=== PATIENT | female | born 1965 | race Caucasian/White ===

== ENCOUNTER 2024-02-23 12:17 | Emergency (ER) | payer BC, SELFPAY ==
[2024-02-23 12:19] VITALS: BP 146/90
[2024-02-23 13:01] LABS: % Basophils 0.4 % (0-2); % Eosinophils 0.3 % (0-6); % Immature Granulocytes 2.2 % (0-0.5); % Lymphocytes 17.1 % (20.5-51.1); % Monocytes 8.3 % (1.7-9.3); % Neutrophils 71.7 % (42.2-75.2); Absolute Immature Granulocytes 0.2 10^3/uL (0-0.05); Absolute Lymphocytes 1.9 10^3/uL (1.2-3.4); Absolute Monocytes 0.9 10^3/uL (0.1-0.6); Hematocrit 40.3 % (37.0-47.0); Hemoglobin 13.6 g/dL (12.0-16.0); Mean Corp Hgb Conc. 33.7 g/dL (33.0-37.0); Mean Corpuscular Hgb 27.7 pg (27.0-31.0); Mean Corpuscular Volume 82.1 fL (81.0-99.0); Mean Platelet Volume 10.6 fL (7.4-10.4); Nucleated Red Blood Cells % 0 %; Platelet Count 245 10^3/uL (130-400); Red Blood Cell Count 4.91 10^6/uL (4.20-5.40); Red Cell Dist. Width 13.4 % (11.5-14.5); White Blood Cell Count 11.1 10^3/uL (4.8-10.8)
[2024-02-23 13:18] LABS: ALT (SGPT) 82 U/L (0-35); AST (SGOT) 30 U/L (14-36); Acetaminophen < 10 ug/ml (10-30); Albumin 3.6 g/dl (3.5-5.0); Alkaline Phosphatase 37 U/L (38-126); Blood Urea Nitrogen 20 mg/dl (7-17); Calcium 8.8 mg/dl (8.4-10.2); Carbon Dioxide 25 mmol/L (22-30); Chloride 99 mmol/L (98-107); Glucose 102 mg/dl (70-99); Potassium 3.4 mmol/L (3.5-5.1); Salicylate < 1.0 mg/dl (2.0-20.0); Sodium 130 mmol/L (135-145); Total Bilirubin 0.3 mg/dl (0.2-1.3); Total Protein 6.1 g/dl (6.3-8.2); eGFR > 60.00
[2024-02-23 13:19] LABS: Alcohol None Detected
[2024-02-23 13:57] LABS: Urine Albumin Negative (Neg - Trace); Urine Bilirubin Negative (Negative); Urine Character Clear (Clear); Urine Color Yellow; Urine Glucose Negative (Negative); Urine Ketone Trace (Negative); Urine Leukocyte Trace (Negative); Urine Nitrite Negative (Negative); Urine Occult Blood Negative (Negative); Urine Urobilinogen Negative (Neg - 1+)
[2024-02-23 14:17] LABS: Amphetamines Negative (Negative); Barbiturates Negative (Negative); Benzodiazepines Negative (Negative); Buprenorphine Negative (Negative); Cocaine Negative (Negative); Marijuana Negative (Negative); Methadone Negative (Negative); Methamphetamines Negative (Negative); Opiates Negative (Negative); Phencyclidine Negative (Negative); Tricyclic Antidepressants Negative (Negative)
[2024-02-23 14:35] LABS: Urine Amorphous Seen; Urine Squamous Cell 0-2 /LPF (Few); Urine Urothelial Cell 0-2 /LPF (FEW)
[2024-02-23 14:36] LABS: Urine Bacteria Few (Negative); Urine Red Blood Cell 0-2 /HPF (0-2); Urine White Cell 0-2 /HPF (0-5)
--- NOTE | 2024-02-23 15:01 | ED.GENMED ---
History of Present Illness
General
Chief Complaint: Suicidal Ideation
Time Seen by Provider: 02/23/24 13:46
Travel History
Have you had any contact with someone who has COVID-19?: No
Do you have any symptoms of coronavirus? Fever > 100 degrees, chills, cough, shortness of breath, sore throat, loss of taste or smell, muscle aches, or headache?: No
History of Present Illness
History of Present Illness:
HPI: The patient presents due to suicidal ideation. She initially was seen at [facility] who referred her here for further evaluation and medical management. 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 She does not
have a plan for suicide. She states she is still taking Zoloft but her daughter took her benzo away for her as there was concerned that the patient may have been abusing it. Family states that she was at [facility] after she had some left-sided
weakness.
EXAM:
GENERAL: Appears very anxious and somewhat tremulous
HEENT: Moist oral mucosa
CARDIOVASCULAR: No murmurs, normal heart rate, regular rhythm, No chest wall tenderness
PULMONARY: No respiratory distress, breath sounds are clear and equal
ABDOMEN: Soft with no peritoneal signs, no tenderness
NEUROLOGIC: Very good strength all extremities however she did report some left-sided weakness from weeks ago that is not clearly present on exam, no coordination deficits
PSYCHIATRIC: Appropriate mental status, normal insight and judgement, however appears very and
EXTREMITIES: Nontender, no edema, moves all extremities equally
SKIN: No rash, no lesions
TIME OF INITIAL ENCOUNTER: 1 PM
NUMBER AND COMPLEXITY OF PROBLEMS ADDRESSED AT THE ENCOUNTER
� Chronic conditions affecting care: Metastatic lung cancer
� Acute Exacerbation and/or Progression of Chronic Illness: The patient has been on steroids and is currently weaning down however
� Differential Diagnosis includes: Suicidal ideation, intracranial mass, overdose, electrolyte abnormality
AMOUNT AND/OR COMPLEXITY OF DATA TO BE REVIEWED AND ANALYZED
� I performed an independent evaluation of and my interpretation is:
EKG:
CT: CT imaging shows right parietal craniotomy changes and large right hemispheric area of abnormality decreased attenuation representing both edematous changes encephalomalacia, there is a 5 mm shift of the midline to the left
however no intracranial mass lesion noted
X-rays:
Laboratory Studies: White count 11.1, hemoglobin 13.6, bicarb is normal
Other:
� Review of other/old records: I reviewed the notes that the daughter shared with me, the prior neuroimaging at [facility] showed 13 mm of shift�this was obtained earlier this month
� Clinical information was obtained by an independent historian: I spoke to daughter at bedside
� Prescriptions/Medications Considered but not given:
� Further testing considered but not performed:
RISK OF COMPLICATIONS AND/OR MORBIDITY OR MORTALITY OF PATIENT MANAGEMENT
� Social determinants of health affecting care: Lives at home
� Discussion with other providers:
� Escalation of care including admission/observation vs risk of discharge considered: She does have suicidal ideation. She does not necessarily have a plan but is an obvious distress. Basic lab work relatively unremarkable
however sodium slightly low at 130. Urinalysis does not show any sign of infection, UDS, salicylates, Tylenol, alcohol unremarkable. Although CT does show 5 mm of shift along with chronic disease, this is actually improved compared to the
neuroimaging at [facility] which showed 13 mm of shift earlier this month. I do suspect that some of her symptoms are related to being on steroids. She appears extremely anxious, will give a dose of benzos here. The patient has no new
neurologic dysfunction but is primarily here related to suicidal ideation. She has a nonfocal neurologic examination however she appears extremely anxious.
Past History
Past History
ED Past Medical History: Other (Migraines)
ED Past Surgical History: Other (wisdom teeth, skin cancer)
Social History
Tobacco: Non-smoker
Alcohol: None
Drug: None
Phy Exam
Physical Exam
Physical Exam:
See HPI
Course
Orders/Labs/Results
Orders:
Orders
02/23/24 12:38
Crisis Consult Urgent
Reason for Consult: suicidal ideation
1:1 Observation - Suicide/ Violent Behavior As Directed
02/23/24 12:52
Acetaminophen Urgent
Alcohol Urgent
CMP [Comprehensive Metabolic Panel] Urgent
Complete Blood Count/With Diff Urgent
Salicylate Urgent
02/23/24 13:[address] [CT Head W/o Iv Contrast] Urgent
Comment:
Reason For Exam: hx of lung cancer w/ mets-- change in behavior
02/23/24 13:37
Urinalysis Urgent
Date Specimen was Collected: 02/23/24
Time Specimen was Collected: 12:41
Urine Drug Abuse Screen Urgent
Date Specimen was Collected: 02/23/24
Time Specimen was Collected: 12:41
Urine Microscopic Urgent
Date Specimen was Collected: 02/23/24
Time Specimen was Collected: 12:41
02/23/24 15:27
Alprazolam [Xanax] 1 mg PO NOW STA
02/23/24 17:13
COVID-19 Antigen Urgent
Source: Nasal Swab
02/23/24 18:21
Apixaban [Eliquis] 5 mg PO NOW STA
02/23/24 18:22
Dexamethasone [Decadron] 4 mg PO NOW STA
02/23/24 19:12
Calcium Carbonate [Oscal Scot 500] 500 mg PO NOW STA
02/23/24 19:13
Temazepam [Restoril] 15 mg PO NOW STA
Abnormal Lab Results
02/23/24 02/23/24
12:52 13:37
WBC 11.1 H 10^3/uL
(4.8-10.8)
MPV 10.6 H fL
(7.4-10.4)
Abs Immat Gran (auto) 0.2 H 10^3/uL
(0-0.05)
Absolute Neuts (auto) 8.0 H 10^3/uL
(1.4-6.5)
Absolute Monos (auto) 0.9 H 10^3/uL
(0.1-0.6)
Immature Gran % 2.2 H %
(0-0.5)
Lymphocytes % 17.1 L %
(20.5-51.1)
Sodium 130 L mmol/L
(135-145)
Potassium 3.4 L mmol/L
(3.5-5.1)
BUN 20 H mg/dl
(7-17)
Creatinine 0.4 L mg/dL
(0.6-1.0)
Glucose 102 H mg/dl
(70-99)
ALT 82 H U/L
(0-35)
Alkaline Phosphatase 37 L U/L
(38-126)
Total Protein 6.1 L g/dl
(6.3-8.2)
Urine Ketones Trace A
(Negative)
Ur Leukocyte Esterase Trace A
(Negative)
Urine Bacteria Few A
(Negative)
Salicylates < 1.0 L mg/dl
(2.0-20.0)
Acetaminophen < 10 L ug/ml
(10-30)
02/23/24 12:52
02/23/24 12:52
Vital Signs
Initial and Last Documented VS:
Initial Vital Signs
Temp Pulse Resp BP Pulse Ox
98.1 F 82 18 146/90 96
02/23/24 12:19 02/23/24 12:19 02/23/24 12:19 02/23/24 12:19 02/23/24 12:19
Last Documented Vital Signs
Temp Pulse Resp BP Pulse Ox
96.5 F L 66 18 114/70 97
02/23/24 19:22 02/23/24 19:22 02/23/24 12:19 02/23/24 19:22 02/23/24 19:22
*Critical Care Note
Total Time (30-74mins, 75-104mins- exclusive of procedures): Not Applicable
ED Attending Note
-
Portions of this chart may have been created with voice recognition software.� Occasional wrong word or��sound alike� substitutions may have occurred due to the inherent limitations of voice recognition software.
Discharge Plan
Departure
Patient Disposition: Psych Facility
Date of Disposition: 02/23/24
Time of Disposition: 16:13
Discharge Problem:
Suicidal ideation
Prescriptions:
No Action
pentoxifylline 400 mg Tablet Extended Release
400 mg PO BID
Patient Comments:
started on 02/13 - was for 14 days
temazepam 15 mg Capsule
15 mg PO HS
clindamycin phosphate 1 % Gel
1 applic TOPICAL BID
calcium carbonate 500 mg calcium (1,250 mg) Tablet
500 mg PO BID
dexamethasone 4 mg Tablet
4 mg PO TID
frovatriptan 2.5 mg Tablet
2.5 mg PO PRN PRN (Reason: migraine)
sertraline 50 mg Tablet
50 mg PO DAILY
clonazepam 0.5 mg Tablet,Disintegrating
0.5 mg PO TIDPRN PRN (Reason: anxiety)
vitamin E (dl, acetate) 90 mg (200 unit) Capsule
90 mg PO DAILY
Eliquis 5 mg Tablet
5 mg PO BID
potassium chloride 20 mEq Tablet Extended Release
20 meq PO DAILY
Referrals:
UNKNOWN - PT DOES,NOT KNOW [Family Provider] -
Interventions
Interventions:
*Risk Screen - Suicide Last Done: 02/23/24 12:34
*General Assessment Last Done: 02/23/24 14:09
*Neglect/Abuse Screening Last Done: 02/23/24 12:34
ED- Fall Risk Assessment Last Done: 02/23/24 14:10
*ED COVID-19 Vaccine History Last Done: 02/23/24 19:51
*Nursing Disposition Last Done: 02/23/24 19:51
ED-Psychological Assessment Last Done: 02/23/24 14:08
Discharge Date and Time
Discharge Date/Time: 02/23/24 19:54
Print Language: HUNGARIAN
[2024-02-23] MEDS: XANAX 1 MG PO (15:36)
[2024-02-23 15:40] VITALS: BMI 19.3
[2024-02-23 17:37] LABS: COVID-19 Antigen Negative (Negative)
[2024-02-23] MEDS: DECADRON 4 MG PO (19:13)
[2024-02-23] MEDS: ELIQUIS 5 MG PO (19:13)
[2024-02-23 19:22] VITALS: BP 114/70
[2024-02-23] MEDS: OSCAL CAL 500 500 MG PO (19:22)
[2024-02-23] MEDS: RESTORIL 15 MG PO (19:23)
== END 2024-02-23 19:54 ==
LOC: EMR 12:17
PROVIDERS: EMERGENCY PHYSICIAN Emergency Medicine
DX: R45.851 Suicidal ideations (principal); C79.31 Secondary malignant neoplasm of brain; Z85.828 Personal history of other malignant neoplasm of skin
CPT/HCPCS: 99284; 70450; 80053; 80143; 80179; 80306; 81003; 81015; 82077; 85025; 87811